=== PATIENT | male | born 1945 | race Caucasian/White ===

== ENCOUNTER 2016-10-04 08:19 | Day surgery (SDC) | payer MEDICARE, BC ==
[~2016-10-04 08:19] MED LIST: Acetaminophen TAB* 325 MG PO PRN; Buffered Lidocaine 0.9% SYRIN* 5 ML/SYR SYRINGE INTRADERM ONE
[2016-10-04] MEDS ORDERED: Midazolam* 1 MG/ML 2 ML VIAL (2 MG) ONE (09:53)
[2016-10-04] MEDS ORDERED: fentaNYL* 50 MCG/ML 2 ML VIAL (100 MCG VIAL) ONE (10:00)
[2016-10-04 10:27] VITALS: BP 126/78
[2016-10-04] MEDS ORDERED: Buffered Lidocaine 0.9% SYRIN* 5 ML/SYR SYRINGE ONE (12:51)
[2016-10-04] MEDS ORDERED: Cyclopentolate 1% OPTH.SOL* 2 ML BTL ONE (12:51)
[2016-10-04] MEDS ORDERED: Tropicamide 1% OPTH.SOL* BTL ONE (12:51)
[2016-10-04] MEDS ORDERED: Neomycin/Polymy/Dex OPHTH.OIN* 3.5 GM ONE (12:51)
[2016-10-04] MEDS ORDERED: Tetracaine 0.5% OPTH.SOL 4 ML* 1 DROP BTL ONE (12:51)
[2016-10-04] MEDS ORDERED: Lidocaine 1% MPF* 2 ML VIAL ONE (12:51)
[2016-10-04] MEDS ORDERED: Phenylephrine 2.5% OPTH.SOL* 2 ML BTL ONE (12:51)
[2016-10-04] MEDS ORDERED: Flurbiprofen 0.03% OPTH.SOL* 2.5 ML BTL ONE (12:51)
--- NOTE | 2016-10-04 14:15 | OP ---
DATE OF OPERATION: 10/04/16 - [facility] DATE OF : 43 SURGEON: Gene Shipman MD PIE ICER MACHINE: None. ANESTHESIOLOGIST: Buzz Randolph MD ANESTHESIA: Topical with intravenous sedation. PRE-OP DIAGNOSIS: Cataract with astigmatism, right eye. POST-OP DIAGNOSIS: Cataract with astigmatism, right eye. OPERATIVE PROCEDURE: Phacoemulsification and cataract extraction with posterior chamber Toric intraocular lens implant, right eye. COMPLICATIONS: None. BLOOD LOSS: None. DESCRIPTION OF PROCEDURE: The patient was seen preoperatively in the holding area, where a marciano was made at the 6 o'clock position of the limbus of the right eye while he was sitting upright. The patient was subsequently brought to the operating room and he received a drop of tetracaine in the right eye. He was given a small amount of intravenous sedation. The right eye was prepped and draped in the usual sterile fashion for ophthalmic surgery and attention was directed to the right eye where a speculum was placed. A paracentesis was created at the 11 o'clock position and 0.1 cc of 1% preservative-free Lidocaine was injected into the anterior chamber followed by DisCoVisc. The eye was digitally stabilized while a 2.75 mm keratome was used to create a triplanar clear corneal incision at the 9 o'clock position. A continuous curvilinear capsulorrhexis was created with a cystotome and Utrata forceps. BSS on a cannula was used to hydrodissect the lens from the capsule. Phacoemulsification was performed in a [id number] technique to create four fragments which were removed. Residual cortical material was removed with irrigation and aspiration. Healon was used to inflate the capsular bag. A Lopez marciano was used to marciano the 14 degree axis. An SN6AT3, 16.5 diopter lens was folded and inserted into the capsular bag. It was dialed to the appropriate axial alignment using a Sinskey hook. The Sinskey hook was placed through the paracentesis to stabilize the lens where irrigation aspiration was performed to remove viscoelastic from the eye. The Sinskey hook was removed. BSS on a cannula was used to hydrate the corneal stroma and seal the wound. At the end of the case, the pupil was round, the lens was centered and axial aligned, the eye pressure was normal and the wound was watertight. The speculum was removed and topical Maxitrol ointment was placed on the surface of the eye. The eye was closed, patched and shielded and the patient was sent to the recovery room in stable condition with postoperative instructions and follow -up appointment given. [id number]/[facility] #: [id number] MTDD
== END 2016-10-04 10:40 | disposition home or self-care (01) ==
LOC: OREAST 08:19
PROVIDERS: ATTEND Ophthalmology
DX: H25.11 Age-related nuclear cataract, right eye (principal); H52.201 Unspecified astigmatism, right eye; E78.5 Hyperlipidemia, unspecified; R25.1 Tremor, unspecified; C91.10 Chronic lymphocytic leukemia of B-cell type not having achieved remission
CPT/HCPCS: A9270-GY; J2250; J3010; V2787

== ENCOUNTER 2016-10-11 10:46 | Day surgery (SDC) | payer MEDICARE, BC ==
[2016-10-11] MEDS ORDERED: Midazolam* 1 MG/ML 2 ML VIAL (2 MG) ONE (11:36)
[2016-10-11] MEDS ORDERED: fentaNYL* 50 MCG/ML 2 ML VIAL (100 MCG VIAL) ONE (11:36)
[2016-10-11 12:28] VITALS: BP 128/84
[2016-10-11] MEDS ORDERED: Lidocaine 1% MPF* 2 ML VIAL ONE (13:29)
[2016-10-11] MEDS ORDERED: Cyclopentolate 1% OPTH.SOL* 2 ML BTL ONE (13:29)
[2016-10-11] MEDS ORDERED: Flurbiprofen 0.03% OPTH.SOL* 2.5 ML BTL ONE (13:29)
[2016-10-11] MEDS ORDERED: Phenylephrine 2.5% OPTH.SOL* 2 ML BTL ONE (13:29)
[2016-10-11] MEDS ORDERED: Tropicamide 1% OPTH.SOL* BTL ONE (13:29)
[2016-10-11] MEDS ORDERED: Tetracaine 0.5% OPTH.SOL 4 ML* 1 DROP BTL ONE (13:29)
[2016-10-11] MEDS ORDERED: Neomycin/Polymy/Dex OPHTH.OIN* 3.5 GM ONE (13:29)
[2016-10-11] MEDS ORDERED: Buffered Lidocaine 0.9% SYRIN* 5 ML/SYR SYRINGE ONE (13:30)
--- NOTE | 2016-10-11 21:03 | OP ---
DATE OF OPERATION: 10/11/16 - [facility] DATE OF : 43 SURGEON: Gene Shipman MD ENVIRONMENTAL HEALTH SPECIALIST: None. ANESTHESIOLOGIST: Dr. Bay ANESTHESIA: Topical with IV sedation. PRE-OP DIAGNOSIS: Cataract left eye with astigmatism. POST-OP DIAGNOSIS: Cataract left eye with astigmatism. OPERATIVE PROCEDURE: Phacoemulsification and cataract extraction with posterior chamber intraocular toric lens, left eye. COMPLICATIONS: None. BLOOD LOSS: None. DESCRIPTION OF PROCEDURE: The patient was seen preoperatively in the holding area where he was placed in an upright position. A marciano was made at the 6 o' clock position of the conjunctival limbus in he left eye. The patient was subsequently brought to the operating room. Here he was prepped and draped in the usual sterile fashion for ophthalmic surgery. Attention was directed to left eye where speculum was placed. A paracentesis was created at the 5 o' clock position. 0.1 cc of 1% preservative-free lidocaine was injected into the anterior chamber followed by DisCoVisc. The eye was digitally stabilized while a 2.75 mm keratome was used to create a triplanar clear corneal incision at the 3 o'clock position. A continuous curvilinear capsulorrhexis was created with a cystotome and Utrata forceps. BSS in a cannula was used to hydrodissect the lens from the capsule. Phacoemulsification was performed in a divide-and- conquer technique to create 4 fragments which were removed. Residual cortical material was removed with irrigation and aspiration. Healon was used to inflate the capsular bag. A marking pen and Lopez marker were used to marciano at the 157 degree axis of the limbus. An SN6AT4 17 diopter lens was folded and inserted into the capsular bag. It was dialed to the appropriate axial alignment with a Sinskey hook. The lens was held with the Sinskey hook through the paracentesis while irrigation and aspiration was performed to remove viscoelastic from the eye. The Sinskey hook was removed. BSS on a cannula was used to hydrate the corneal stroma and seal the wound. At the end of the case, the pupil was round and lens was centered. The lens axially aligned. The eye pressure appeared normal and the wound was watertight. The speculum was removed and topical Maxitrol ointment was placed on the surface of the eye. The eye was closed, patched, and shielded and the patient was sent to the recovery room in stable condition with postoperative instructions and followup appointment given. [id number]/[facility] #: [id number]
== END 2016-10-11 12:29 | disposition home or self-care (01) ==
LOC: OREAST 10:46
PROVIDERS: ATTEND Ophthalmology
DX: H25.12 Age-related nuclear cataract, left eye (principal); H52.202 Unspecified astigmatism, left eye; E78.5 Hyperlipidemia, unspecified; R25.1 Tremor, unspecified
CPT/HCPCS: A9270-GY; J2250; J3010; V2787